=== PATIENT | female | born 1960 | race Caucasian/White ===

== ENCOUNTER → 2016-12-09 | Outpatient (CLI) | payer OTHER | LOC: FIMAGING 08:47 | PROVIDERS: ATTEND Nurse Practitioner Family | DX: Z12.31 Encounter for screening mammogram for malignant neoplasm of breast (principal) | CPT/HCPCS: G0202 ==

== ENCOUNTER → 2018-01-18 | Outpatient (CLI) | payer OTHER | LOC: FIMAGING 14:13 | PROVIDERS: ATTEND Nurse Practitioner Family | DX: Z12.31 Encounter for screening mammogram for malignant neoplasm of breast (principal) ==

== ENCOUNTER 2018-02-22 09:59 | Emergency (ER) | payer OTHER ==
--- NOTE | 2018-02-22 10:36 | EDPHY ---
H & P Time Seen by Provider: 02/22/18 10:12 HPI/ROS: This patient complains of right calf pain 5 days status post knee surgery by Dr. Cee as [facility] without complications for meniscus repair. She reports that she developed mild calf pain postop day 3 on Tuesday and that the pain became moderate"like a charley horse"yesterday. She gained some relief from [id number]-[id number] analgesics and massage from her to the calf but today still has mild calf pain that worsens when she walks. Given concern of potential blood clot she came in for evaluation. She also reports that she had a syncopal episode Tuesday when she arose from bed. She admits that she frequently has syncope and that she attributes this episode to change in position. She explains that when she stood up to go to the restroom and put in her contacts she just but the contacts and she started feeling quite lightheaded and nauseous. She told her about the symptoms to advised her to sit down she managed to sit and then had brief syncope. Her caught her she regained consciousness shortly after this brief loss of consciousness and since then has had no feeling of lightheadedness or syncope. ROS: Constitutional no fevers Pulmonary: No pleuritic pain or shortness of breath Cardiovascular: No chest pain. She has noticed any significant swelling to the right lower extremity Musculoskeletal: She denies any significant knee pain. Only the calf pain to the right lower extremity Integumentary: No skin rash. Endocrine: No diaphoresis. 7 point review of symptoms is performed and otherwise negative with exception of pertinent positives and negatives listed in HPI and ROS Past Medical/Surgical History: Family history is negative for premature coronary disease or sudden cardiac . Family history is also negative for DVT or PE Social History: Occasional alcohol. No drug use. Smoking Status: Never smoked Physical Exam: General Appearance: Alert, no distress. Eyes: Pupils equal and round no pallor or injection. ENT, Mouth: Mucous membranes moist. Respiratory: There are no retractions, lungs are clear to auscultation. Cardiovascular: Regular rate and rhythm. Gastrointestinal: Abdomen is soft and nontender, no masses, bowel sounds normal. Neurological: GCS 15 Skin: Warm and dry, no rashes. Musculoskeletal: Neck is supple nontender. Extremities are symmetrical, full range of motion except for right lower extremity Right lower extremity: Patient has clean dry intact surgical scars and sutures in place to the knee without significance knee swelling or tenderness. She has mild calf tenderness without significant swelling. Homans is negative. Left lower extremity is normal Psychiatric: Mood and affect normal DIFFERENTIAL DIAGNOSIS: After history and physical exam differential diagnosis was considered for DVT, calf muscle cramp, calf muscle strain, contusion, vasovagal syncope, dehydration, myocardial ischemia, dysrhythmia Constitutional: Initial Vital Signs Temperature (C) 36.8 C 02/22/18 10:10 Heart Rate 80 02/22/18 10:10 Respiratory Rate 14 02/22/18 10:10 Blood Pressure 137/86 H 02/22/18 10:10 O2 Delivery Mode Room Air Allergies/Adverse Reactions: No Known Allergies Allergy (Unverified 02/22/18 10:16) Home Medications: Medication Instructions Recorded NO HOME MEDS 06/05/10 Aspirin [Aspirin 81mg (*)] 02/22/18 Estradiol [Estradiol 1 MG (*)] 02/22/18 MDM/Departure - MDM Diagnostics: 12 lead EKG performed at 10:38 a.m. Indication syncope rule out dysrhythmia or evidence of ischemia sinus rhythm at 64 Intervals: Normal throughout [place]: Normal throughout ST segments: Normal throughout Overall assessment: Normal EKG Imaging Results: Doppler ultrasound-no DVT. She does have a small Irving cyst per discussed this result with Dr. Rodríguez-radiologist who read the study Imaging: Discussed imaging studies w/ bingo caller Radiologist ED Course/Re-evaluation: Discussion: Patient with postop leg pain who warranted DVT to rule out. We ruled out DVT with Doppler study revealing evidence of DVT. Patient understands need to return to the emergency department should she develop any worsening symptoms despite treatment plan of ibuprofen and stretching. - Depart Disposition: Home, Routine, Self-Care Clinical Impression: Pain of right calf Irving's cyst of knee Qualifiers: Laterality: right Qualified Code(s): M71.21 - Synovial cyst of popliteal space [Irving], right knee Condition: Good Instructions: Bakers Cyst (ED) Additional Instructions: Diagnoses:. Calf pain 2. Irving cyst Your EKG today was normal Your Doppler ultrasound ruled out deep venous thrombosis. Plan: [id number] analgesics as needed. Gentle stretching of her calf Follow up with Dr. Cee Return for any significant worsening despite the treatment plan Referrals: TARSHA PERKINS [Primary Care Provider] - As per Instructions
[2018-02-22 12:04] VITALS: BP 123/76
--- NOTE | 2018-02-22 12:59 | CPEKG ---
Test Reason : OPEN Blood Pressure : / mmHG Vent. Rate : 064 BPM Atrial Rate : 064 BPM P-R Int : 140 ms QRS Dur : 098 ms QT Int : 393 ms P-R-T Axes : 058 037 027 degrees QTc Int : 406 ms Sinus rhythm Confirmed by Sotero Berrios ([id number]) on 02/22/2018 12:59:14 PM Referred By: Confirmed By:Sotero Berrios
== END 2018-02-22 12:04 | disposition home or self-care (01) ==
LOC: CED 09:59
DX: M79.661 Pain in right lower leg (principal); M71.21 Synovial cyst of popliteal space [Baker], right knee
CPT/HCPCS: 93971-PO; 99284-ER